=== PATIENT | male | born 1945 | race Caucasian/White ===

== ENCOUNTER → 2021-08-06 | Day surgery (SDC) | payer MEDICARE, OTHER ==
[2021-08-06 14:37] VITALS: BP 148/66
== END | disposition home or self-care (01) ==
LOC: SURG 14:28
PROVIDERS: ATTEND Anesthesiology
DX: M47.816 Spondylosis without myelopathy or radiculopathy, lumbar region (principal); M25.552 Pain in left hip; I10 Essential (primary) hypertension; G47.30 Sleep apnea, unspecified; Z96.653 Presence of artificial knee joint, bilateral; Z98.52 Vasectomy status; Z98.890 Other specified postprocedural states; Z79.899 Other long term (current) drug therapy; Z91.013 Allergy to seafood; Z72.89 Other problems related to lifestyle
CPT/HCPCS: 99204; G0463